=== PATIENT | male | born 2000 | race Caucasian/White ===

== ENCOUNTER 2024-03-15 08:37 | Outpatient (CLI) | payer BC, SELFPAY ==
[2024-03-15 09:21] LABS: Hemoglobin A1C* 5.4 % (0-5.6)
[2024-03-15 11:59] LABS: Cholesterol* 169 mg/dL (90-199)
[2024-03-15 12:00] LABS: Glucose* 107 mg/dL (60-115); HDL Cholesterol* 45 mg/dL (>=40); LDL Cholesterol Calculated 98 mg/dL (<100); Triglycerides* 129 mg/dL (40-149)
[2024-03-15 12:14] LABS: Hepatitis B Surface Antigen* Negative (Negative)
[2024-03-15 12:21] LABS: HIV 1/2/P24 Combo Screen* Negative (Negative)
[2024-03-15 12:32] LABS: Hepatitis C Virus Antibody* Negative (Negative)
[2024-03-15 12:34] LABS: Hepatitis B Surface Antibody* Negative (Negative)
[2024-03-15 13:07] LABS: Chlamydia DNA Amplified* NOT DETECTED (No Detected); GC DNA Amplified* NOT DETECTED (No Detected)
[2024-03-17 18:07] LABS: Treponema pallidum VDRL Serum Non Reactive (Non Reactive)
== END 2024-03-15 08:38 | disposition home or self-care (01) ==
PROVIDERS: PCP Family Medicine; Visit Provider Family Medicine
DX: R73.01 Impaired fasting glucose (principal); Z11.3 Encounter for screening for infections with a predominantly sexual mode of transmission; Z13.220 Encounter for screening for lipoid disorders
CPT/HCPCS: 80061; 82947; 83036; 86592; 86593; 86703; 86706; 86803; 87086; 87340; 87491; 87591

== ENCOUNTER 2024-07-26 12:30 | Emergency (ER) | payer BC, SELFPAY ==
[2024-07-26 12:41] VITALS: BP 135/84; PULSE 84; RESP 18; TEMP 36.1; O2SAT 97; BMI 35.3
--- NOTE | 2024-07-26 13:40 | ED.PSYCH ---
HPI - Psych General Time Seen by Provider: 13:40 Date Seen: 07/26/24 Chief Complaint: Psychiatric Problem/Disorder Stated Complaint: Mental health Time Seen by Provider: 07/26/24 13:40 Source: patient, family and RN notes reviewed Mode of arrival: ambulatory Limitations: no limitations History of Present Illness HPI Narrative: George is a very pleasant 23-year-old young man with a history of autism, spectrum disorder, anxiety and depression who is brought to the emergency room by his [id number] and sister with concerns regarding behaviors. George states that he has always had a hard time knowing what the line is between appropriate behavior because of his spectrum disorder. However, he notes that lately he has been taking some risk taking behavior. He notes that he has been going to the [employer] by himself and states that 1 night he saw car that he wanted to test drive in decided he did not want to wait till morning and thus tried to break into it. He has also had some erratically behavior and has lost his job arm and has been lying about going to work. His sister Shahnaz has a very detailed record of his behavior over the past year. George is very forthcoming and describes a lot of what she has documented. George notes that in March he seemed very very down and loss. He describes a hard time getting up in the morning and even feeling hopeless. He states it was hard for him for him to remember what to do and where to go. He notes that that feeling lifted in May and he was feeling much better. States at that time he even felt empowered to voice concerns instead of keeping them inside. Unfortunately he states this may have caused a rift in his family from being too on his. At 1 point he was kicked out of his sister's house and moved into his parent's house in [place]. He wanted to get some items from his sister's house but she had changed the locks and thus he broke in. George denies any auditory or visual hallucinations. He denies any drug use, self-medication with alcohol. George is currently taking fluoxetine 40 mg daily. He has had some counseling with a tele visit but does not feel that this is sufficient and is hoping for [id number] with somebody. Related Data Home Medications ?Medication ?Instructions ?Recorded ?Confirmed emtricitabine 200 mg-tenofovir 1 tab PO DAILY 07/26/24 07/26/24 alafenamide fumarate 25 mg tablet (Descovy) Previous Rx's ?Medication ?Instructions ?Recorded hydroxyzine HCl 25 mg tablet 25 mg PO TID PRN anxiety #30 tabs 04/23/24 fluoxetine 40 mg capsule 40 mg PO QDAY #30 caps 07/10/24 Allergies Allergy/AdvReac Type Severity Reaction Status Date / Time No Known Drug Allergies Allergy Verified 07/26/24 12:40 Review of Systems Status of ROS: Reports: 6 or more systems reviewed and unremarkable except as noted in History and below [facility] Medical History (Updated 07/26/24 @ 15:02 by Becky Taylor MD) Anxiety ?F41.9 - Anxiety disorder, unspecified (ICD-10) Social History (Updated 03/15/24 @ 08:59 by Elba Connors~[facility], [facility]) What is your current living situation?: I presently have a place to live Problems where you live: mold and water leaks In the past 12 months, utilities in danger of being shut off: no In past 12 months, lack of transportation kept you from medical appts, meetings, work, or getting things needed for daily living: no In the past 12 mos, have been you worried that your food would run out before you had money to buy more?: never true In the past 12 mos, the food you bought just didn't last and you didn't have money to buy more?: never true Smoking Status: Never smoker How often do you have a drink containing alcohol: monthly or less AUDIT-C Alcohol total score: 1 Non-prescribed substance use: marijuana (any form) Non-prescribed substance use details: thc gummies How often does anyone, including family, friends and others, physically hurt you: never How often does anyone, including family, friends and others, insult or talk down to you: rarely How often does anyone, including family, friends and others, threaten you with harm: rarely How often does anyone, including family, friends and others, scream or curse at you: sometimes Little interest or pleasure in doing things: nearly every day Feeling down, depressed, or hopeless: more than half the days Exam Narrative: Exam Narrative: George what is alert and oriented. Makes good eye contact. Appropriate speech content. Possibly some minimizing of his high risk behavior. Neck is supple with no thyromegaly or lymphadenopathy. Heart with regular rate and rhythm and lungs are clear bilaterally. Abdomen soft nontender. No CVA tenderness with percussion. Moving all extremities. No evidence of self-harm. Const: Vital Signs, click to edit/add: Vital Signs - 24 hr 07/26/24 12:41 Temperature 96.9 F L Pulse Rate [Pulse Oximeter] 84 Respiratory Rate 18 Blood Pressure [Ri ght Upper Arm] 135/84 Pulse Oximetry 97 Oxygen Delivery Me thod Room Air Documenting provider has reviewed patient's vital signs: yes Course Course ED Course: George is presenting today with symptoms that are concerning for a hypomania or bipolar disorder. He is describing feeling very down in March and suddenly much better in May. Since that time he has had risk taking behavior [place] breaking into a car to test drive. He recognizes that this is not appropriate behavior but states he has always had a hard time recognizing with a line between appropriate and inappropriate might be given his spectrum disorder. He is agreeable to labs today to include a CBC, comprehensive panel, urinalysis, drug screen, EtOH, TSH. The following visit with Rodger I do speak alone to George is sister and [id number]. Sister Payton has an excellent synopsis of what is been going on . They were hoping that George would agree to inpatient treatment and we will revisit that with him. At this time unless he is voluntary I do not have criteria to place him on a hold. Reevaluation(s) Reevaluation #1: Laboratory values are reassuring with normal white count hemoglobin platelets as well as electrolyte panel. Glucose slightly elevated at 1 2 7. LFTs within normal limits. TSH is within normal limits urinalysis without evidence of UTI and drug screen is negative. Alcohol level is negative. Reevaluation #2: Did speak to George about the possibility of inpatient treatment. I did note to his family that if he is willing to go I could certainly explore that option but again it would be dependent on if we could find an accepting facility. At this time George does not think he needs to go to inpatient treatment. Family in the room as we discussed this. Consultations Consultation #1: Had the pleasure of speaking with Jimmy Silva in regards to this patient. Jimmy was able to call George and speak with him and they have arranged an appointment for TuesdayJuly 30. I did ask if we should start medications and Jimmy would like to hold off on that at this time. Vital Signs Vital signs: Initial Vital Signs Temperature 96.9 F L 07/26/24 12:41 Temperature Source Temporal Artery Scan 07/26/24 12:41 Pulse Rate 84 07/26/24 12:41 Pulse Rhythm Regular 07/26/24 12:41 Respiratory Rate 18 07/26/24 12:41 Blood Pressure 135/84 07/26/24 12:41 Blood Pressure Mean 101 07/26/24 12:41 Blood Pressure Position Sitting 07/26/24 12:41 Pulse Oximetry 97 07/26/24 12:41 Oxygen Delivery Method Room Air 07/26/24 12:41 Vital Signs Temperature 96.9 F L 07/26/24 12:41 Pulse Rate 84 07/26/24 12:41 Respiratory Rate 18 07/26/24 12:41 Blood Pressure 135/84 07/26/24 12:41 Pulse Oximetry 97 07/26/24 12:41 Oxygen Delivery Method Room Air 07/26/24 12:41 Temperature 96.9 F L 07/26/24 12:41 Pulse Rate 84 07/26/24 12:41 Respiratory Rate 18 07/26/24 12:41 Blood Pressure 135/84 07/26/24 12:41 Pulse Oximetry 97 07/26/24 12:41 Oxygen Delivery Method Room Air 07/26/24 12:41 MDM - Psych MDM Narrative Medical decision making narrative: 1. Behavioral problems-at this time George has had increasing risk taking behavior. Family notes that he is spending more money, disappearing and [place]. He describes feeling very down in March and suddenly like a weight head lifted in May. I am concerned that this is his presentation of bipolar disorder and he is starting to feel more hypomanic. I did speak with mental health professional Jimmy Silva who contacted patient while patient was in the ED. George will see him on TuesdayJuly 30. He is requesting a fax with a discharge summary labs and my note which we are preparing. Did offer searching for inpatient treatment but he declines this. He is not psychotic nor is he suicidal at this point. He will be around family when he did parts here. They are taking his car keys so that he is not able to drive and he is very receptive of that plan. I did speak to him about suicidal ideation, increasing thoughts or worries regarding his impulsive behavior he should seek medical attention such as returning here or going to a hospital that would offer psychiatric care on site. 2. Disposition-home with family at this time. George feels he will be safe as he states he has puzzles and games to do. He thinks that his family would be able to go out to supper. He feels that he will be safe. Medical Records Attestation: I reviewed the patient's medical records. Lab Data Attestation: I reviewed the patient's lab results. Labs: Lab Results 07/26/24 07/26/24 Range/Units 13:48 13:50 WBC 8.04 (4.50-11.00) K/uL RBC 5.33 (4.30-5.90) m/uL Hgb 14.5 (13.5-17.5) gm/dL Hct 43.9 (37.0-53.0) % MCV 82 (80-100) fL MCH 27 (26-34) pg MCHC 33 (32-36) gm/dL RDW Coeff of Colt 12.9 (11.5-15.5) % Plt Count 251 (140-440) K/uL Neut % (Auto) 60.5 (42.0-72.0) % Lymph % (Auto) 27.7 (20-44) % Haywood % (Auto) 8.0 (0.0-11.0) % Eos % (Auto) 2.4 (0.0-7.0) % Baso % (Auto) 0.4 (0.0-3.0) % Neut # (Auto) 4.87 (1.7-7.0) K/uL Lymph # (Auto) 2.23 (0.90-2.90) K/uL Haywood # (Auto) 0.60 (0.00-0.90) K/UL Eos # (Auto) 0.19 (0.00-0.50) K/uL Baso # (Auto) 0.03 (0.00-0.30) K/uL Abs Immat Gran (auto) 0.08 (0.00-0.30) K/uL Imm/Tot Granulo (auto) 1.0 % Sodium 136 (135-149) mmol/L Potassium 3.8 (3.6-5.1) mmol/L Chloride 101 (96-114) mmol/L Carbon Dioxide 25 (20-32) mmol/L Anion Gap 10 (7-15) mEq/L BUN 15 (5-24) mg/dL Creatinine 0.7 (0.5-1.5) mg/dL Estimated Creat Clear 177.06 Estimated GFR 131 ml/min Glucose 127 H (60-115) mg/dL Calcium 9.8 (8.4-10.6) mg/dL Total Bilirubin 0.3 (0.1-1.5) mg/dL AST 33 (12-35) U/L ALT 52 H (4-50) U/L Alkaline Phosphatase 67 (40-150) U/L C-Reactive Protein 0.9 (0.5-1.0) mg/dL Total Protein 8.2 (6.0-8.3) g/dL Albumin 4.7 (3.3-5.0) g/dL Urine Color Dark yellow (Yellow) Urine Appearance Clear (Clear) Urine pH 7.0 (5.0-8.5) Ur Specific Yale 1.025 (1.000-1.030) Urine Protein 1+ A (Negative) Urine Glucose (UA) Negative (Negative) Urine Ketones Negative (Negative) Urine Blood Negative (Negative) Urine Nitrite Negative (Negative) Urine Bilirubin Negative (Negative) Urine Urobilinogen 0.2 (0.2-1.0) Ur Leukocyte Esterase Negative (Negative) Urine RBC 0-2 (0-2) Urine WBC 0-2 (0-5) Ur Squamous Epith Cells Few (None-Few) Urine Bacteria None (None) Urine Opiates Screen Negative (Negative) Ur Oxycodone Screen Negative (Negative) Urine Methadone Screen Negative (Negative) Ur Barbiturates Screen Negative (Negative) U Tricyclic Antidepress Negative (Negative) Ur Phencyclidine Scrn Negative (Negative) Ur Amphetamines Screen Negative (Negative) U Methamphetamines Scrn Negative (Negative) U Benzodiazepines Scrn Negative (Negative) Urine Cocaine Screen Negative (Negative) U Marijuana (THC) Screen Negative (Negative) Ur Drug Screen Comment See Note Ethyl Alcohol < 0.01 L (0.01-0.03) % Discharge Plan Discharge Clinical Impression: Major depression, Behavioral disorder Patient Disposition: Home w/ Parent or Adult Condition: Unchanged Additional Instructions: Follow-up with Jimmy Silva as scheduled for Tuesday. If you are not doing well, are worried about your behavior, have suicidal thoughts please return to the emergency room for further evaluation. Avoid all alcohol, any chemicals at this time. Prescriptions: No Action hydroxyzine HCl 25 mg tablet 25 mg PO TID PRN (Reason: anxiety) Qty: 30 0RF Descovy 200-25 mg tablet 1 tab PO DAILY fluoxetine 40 mg capsule 40 mg PO QDAY Qty: 30 0RF Follow Up/Referrals: Luis Vasquez MD [Primary Care Provider] - Stand Alone Forms: [employer] Info Instructions
[2024-07-26 13:56] LABS: Appearance Urine Clear (Clear); Bilirubin Urine Negative (Negative); Blood Urine Negative (Negative); Color Urine Dark yellow (Yellow); Glucose Urine Negative (Negative); Ketones Urine Negative (Negative); Leukocyte Esterase Urine Negative (Negative); Nitrite Urine Negative (Negative); Protein Urine 1+ (Negative); Specific Gravity Urine 1.025 (1.000-1.030); Urobilinogen Urine 0.2 (0.2-1.0)
[2024-07-26 13:59] LABS: Basophils Absolute Auto 0.03 K/uL (0.00-0.30); Basophils Percent Auto 0.4 % (0.0-3.0); Eosinophils Absolute Auto 0.19 K/uL (0.00-0.50); Eosinophils Percent Auto 2.4 % (0.0-7.0); Hematocrit 43.9 % (37.0-53.0); Hemoglobin* 14.5 gm/dL (13.5-17.5); Immature Granulocytes Abs Auto 0.08 K/uL (0.00-0.30); Lymphocytes Absolute Auto 2.23 K/uL (0.90-2.90); Lymphocytes Percent Auto 27.7 % (20-44); Mean Corpuscular HGB Conc 33 gm/dL (32-36); Mean Corpuscular Hemoglobin 27 pg (26-34); Mean Corpuscular Volume 82 fL (80-100); Neutrophils Absolute Auto 4.87 K/uL (1.7-7.0); Neutrophils Percent Auto 60.5 % (42.0-72.0); Platelet Count* 251 K/uL (140-440); RDW Coefficient of Variation % 12.9 % (11.5-15.5); Red Blood Count 5.33 m/uL (4.30-5.90); White Blood Count* 8.04 K/uL (4.50-11.00)
[2024-07-26 14:04] LABS: Slide Review Reflex No
[2024-07-26 14:06] LABS: Amphetamine Screen Urine Negative (Negative); Barbiturate Screen Urine Negative (Negative); Benzodiazepines Screen Urine Negative (Negative); Cannabinoid Screen Urine Negative (Negative); Cocaine Screen Urine Negative (Negative); Methadone Screen Urine Negative (Negative); Methamphetamines Screen Urine Negative (Negative); Opiate Screen Urine Negative (Negative); Oxycodone Screen Urine Negative (Negative); Phencyclidine Screen Urine Negative (Negative); Tricyclic Antidepressant Urine Negative (Negative)
[2024-07-26 14:09] LABS: RBC Urine 0-2 (0-2); Squamous Epithelial Cell Urine Few (None-Few); WBC Urine 0-2 (0-5)
[2024-07-26 14:24] LABS: Albumin* 4.7 g/dL (3.3-5.0); Chloride* 101 mmol/L (96-114)
[2024-07-26 14:25] LABS: Potassium* 3.8 mmol/L (3.6-5.1); Sodium* 136 mmol/L (135-149)
[2024-07-26 14:27] LABS: Alkaline Phosphatase* 67 U/L (40-150); Anion Gap 10 mEq/L (7-15); Aspartate Amino Transferase* 33 U/L (12-35); Bilirubin Total* 0.3 mg/dL (0.1-1.5); Carbon Dioxide* 25 mmol/L (20-32); Creatinine* 0.7 mg/dL (0.5-1.5); Est. Creatinine Clearance* 177.06; Estimated Glomerular Filt Rate 131 ml/min; Total Protein* 8.2 g/dL (6.0-8.3)
[2024-07-26 14:28] LABS: Alanine Aminotransferase* 52 U/L (4-50); Blood Urea Nitrogen* 15 mg/dL (5-24); Calcium* 9.8 mg/dL (8.4-10.6); Glucose* 127 mg/dL (60-115)
[2024-07-26 14:30] LABS: C Reactive Protein* 0.9 mg/dL (0.5-1.0)
[2024-07-26 14:34] LABS: Ethanol* < 0.01 % (0.01-0.03)
== END 2024-07-26 15:34 | disposition home or self-care (01) ==
PROVIDERS: Emergency Provider Family Medicine; PCP Family Medicine
DX: F32.A Depression, unspecified (principal); F98.9 Unspecified behavioral and emotional disorders with onset usually occurring in childhood and adolescence
CPT/HCPCS: 36415; 80053; 80306; 81001; 82077; 84443; 85025; 86140; 99283; 99284